=== PATIENT | female | born 1955 | race Asian ===

== ENCOUNTER 2024-03-01 23:42 | Inpatient (IN) | payer MEDICAID, MEDICARE ==
[~2024-03-01] VITALS: Ht 160 cm; Wt 78.0 kg
[2024-03-01 23:47] VITALS: BP_SYST 178; PULSE 109; RESP 18; TEMP 98.5; O2SAT 98
[2024-03-02] VITALS (9 sets, daily range): BP systolic 97–164; PULSE 56–82; RESP 16–18; TEMP 98–98.8; O2SAT 94–98
[2024-03-02] MEDS: ENOXAPARIN SODIUM 80 MG/0.8 ML SYRINGE SUBCUT ONE (00:28)
[2024-03-02] MEDS: dilTIAZem HCL IVP 5 MG/ML VIAL IVP ONE ×2 (00:28→00:45)
[2024-03-02 00:55] LABS: BASOPHILS % (AUTO) 0.4 % (0.0-2.0); EOSINOPHILS # (AUTO) 0.1 K/uL (0.0-0.4); EOSINOPHILS % (AUTO) 2.1 % (0.0-4.0); HEMATOCRIT 49.1 % (36-48); HEMOGLOBIN 16.7 g/dL (12.0-16.0); LYMPHOCYTES # (AUTO) 2.3 K/uL (1.0-5.5); LYMPHOCYTES % (AUTO) 33.3 % (20.5-51.5); MEAN CORPUSCULAR HEMOGLOBIN 30 pg (27-31); MEAN CORPUSCULAR HGB CONC 34 % (32-36); MEAN CORPUSCULAR VOLUME 88 fL (79.0-98.0); MONOCYTES # (AUTO) 0.8 K/uL (0.0-1.0); MONOCYTES % (AUTO) 11.3 % (1.7-9.3); NEUTROPHILS # (AUTO) 3.7 K/uL (1.8-7.7); NEUTROPHILS % (AUTO) 52.9 % (40.0-70.0); PLATELET COUNT (AUTO) 214 K/uL (130-430); RED BLOOD CELL COUNT(AUTO) 5.57 MIL/uL (4.2-6.2); RED CELL DISTRIBUTION WIDTH 14.1 % (9.0-15.0)
[2024-03-02 01:14] LABS: ANION GAP 12 (5-15); CALCIUM 9.8 mg/dL (8.4-11.0); CARBON DIOXIDE 27 mmol/L (23-29); CHLORIDE 102 mmol/L (98-107); CREATININE 0.97 mg/dL (0.55-1.30); GLUCOSE 130 mg/dL (74-106); POTASSIUM 3.2 mmol/L (3.5-5.1); SODIUM SERUM 141 mmol/L (136-145); THYROID STIMULATING HORMONE 1.33 uIu/mL (0.34-4.82); UREA NITROGEN, BLOOD 25 mg/dL (8-21)
[2024-03-02] MEDS ORDERED: MORPHINE 2 MG/ML INJ. SYRINGE IVP PRN (01:15)
[2024-03-02] MEDS ORDERED: ONDANSETRON HCL 4 MG/2 ML VIAL IVP PRN ×2 (01:15→07:15)
[2024-03-02] MEDS ORDERED: ACETAMINOPHEN 325 MG TABLET PO PRN ×3 (01:15→07:45)
[2024-03-02 01:16] LABS: GFR AFRICAN AMERICAN 73 mL/min (>90); GFR NON AFRICAN-AMERICAN 60 mL/min (>90)
[2024-03-02] MEDS: POTASSIUM CHLORIDE 20 MEQ/PKT PACKET PO ONE (01:49)
[2024-03-02] MEDS: ALPRAZolam 0.25 MG TABLET PO PRN (01:49)
[2024-03-02] MEDS: METOPROLOL TARTRATE 5 MG/5 ML VIAL IVP ONE ×2 (02:12→03:15)
[2024-03-02] MEDS ORDERED: METOPROLOL TARTRATE 5 MG/5 ML VIAL IVP PRN (02:15)
[2024-03-02] MEDS ORDERED: CALC-1276 (02:36)
[2024-03-02] MEDS ORDERED: ASPI-1393 PO (02:36)
[2024-03-02] MEDS ORDERED: MULT-1243 PO (02:36)
[2024-03-02] MEDS ORDERED: SIMV-43 PO (02:36)
[2024-03-02] MEDS ORDERED: ALEN70TA27 PO (02:36)
[2024-03-02] MEDS ORDERED: LOSA-413 PO (02:37)
[2024-03-02] MEDS ORDERED: CALC-939 PO (06:24)
[2024-03-02] MEDS ORDERED: HYDROcodone/ACETAMIN 5-325 MG TAB (NORCO/ VICODIN) PO PRN (07:15)
[2024-03-02 07:22] LABS: BILIRUBIN,URINE NEGATIVE (NEGATIVE); BLOOD, URINE TRACE (NEGATIVE); CLARITY/URINE CLEAR (CLEAR); COLOR,URINE STRAW (YELLOW); GLUCOSE,URINE NEGATIVE (NEGATIVE); KETONES,URINE NEGATIVE (NEGATIVE); LEUKOCYTE ESTERASE ,URINE NEGATIVE (NEGATIVE); NITRITE, URINE NEGATIVE (NEGATIVE); PROTEIN URINE 1+ (NEGATIVE); UROBILINOGEN,URINE 0.2 (0.2-1.0)
[2024-03-02 07:31] LABS: BASOPHILS % (AUTO) 0.5 % (0.0-2.0); EOSINOPHILS % (AUTO) 0.2 % (0.0-4.0); HEMATOCRIT 48.2 % (36-48); HEMOGLOBIN 16.3 g/dL (12.0-16.0); LYMPHOCYTES # (AUTO) 1.5 K/uL (1.0-5.5); MEAN CORPUSCULAR HEMOGLOBIN 30 pg (27-31); MEAN CORPUSCULAR HGB CONC 34 % (32-36); MEAN CORPUSCULAR VOLUME 89 fL (79.0-98.0); MONOCYTES # (AUTO) 0.6 K/uL (0.0-1.0); MONOCYTES % (AUTO) 7.7 % (1.7-9.3); NEUTROPHILS # (AUTO) 5.3 K/uL (1.8-7.7); NEUTROPHILS % (AUTO) 71.6 % (40.0-70.0); PLATELET COUNT (AUTO) 215 K/uL (130-430); RED BLOOD CELL COUNT(AUTO) 5.39 MIL/uL (4.2-6.2); RED CELL DISTRIBUTION WIDTH 13.7 % (9.0-15.0); WHITE BLOOD COUNT (AUTO) 7.4 K/uL (4.8-10.8)
[2024-03-02 07:35] LABS: BACTERIA,URINE None Seen /HPF (None Seen); WBC,URINE 0-3 /HPF (0-3)
[2024-03-02 07:36] LABS: MUCUS,URINE 1+ /LPF (None Seen)
[2024-03-02 07:49] LABS: INR 1.1 (0.8-1.2)
[2024-03-02 07:53] LABS: HEMOGLOBIN A1C 5.8 % (<5.7)
[2024-03-02 08:22] LABS: ALBUMIN 3.7 g/dL (3.4-4.8); CALCIUM 9.6 mg/dL (8.4-11.0); CREATININE 0.9 mg/dL (0.55-1.30); POTASSIUM 5.1 mmol/L (3.5-5.1); TOTAL BILIRUBIN 0.6 mg/dL (0.0-1.0); TOTAL PROTEIN, SERUM 8.9 g/dL (6.4-8.3)
[2024-03-02] MEDS: METOPROLOL TARTRATE 25 MG TABLET PO SCH (09:29)
[2024-03-02] MEDS: ENOXAPARIN SODIUM 60 MG/0.6 ML SYRINGE SUBCUT ONE (11:26)
[2024-03-02] MEDS: LOSARTAN POTASSIUM 50 MG TABLET (COZAAR) PO ONE (12:43)
[2024-03-02] MEDS: APIXABAN 2.5 MG TABLET PO SCH (20:32)
[2024-03-02] MEDS ORDERED: ENOXAPARIN SODIUM 60 MG/0.6 ML SYRINGE SUBCUT SCH (21:00)
[2024-03-02] MEDS: SIMVASTATIN 20 MG TABLET PO SCH (21:12)
[2024-03-02] MEDS: METOPROLOL TARTRATE 25 MG TABLET ONE (21:33)
[2024-03-02] MEDS: SIMVASTATIN 20 MG TABLET ONE (21:34)
[2024-03-03 00:30] VITALS: BP_SYST 142; PULSE 61; RESP 18; TEMP 97.1; O2SAT 94
[2024-03-03 06:50] LABS: CREATININE 1.07 mg/dL (0.55-1.30); POTASSIUM 3.4 mmol/L (3.5-5.1)
[2024-03-03 06:51] LABS: BASOPHILS % (AUTO) 0.4 % (0.0-2.0); EOSINOPHILS # (AUTO) 0.1 K/uL (0.0-0.4); HEMATOCRIT 45.5 % (36-48); HEMOGLOBIN 15.4 g/dL (12.0-16.0); LYMPHOCYTES # (AUTO) 1.7 K/uL (1.0-5.5); LYMPHOCYTES % (AUTO) 27.1 % (20.5-51.5); MEAN CORPUSCULAR HEMOGLOBIN 30 pg (27-31); MEAN CORPUSCULAR HGB CONC 34 % (32-36); MEAN CORPUSCULAR VOLUME 89 fL (79.0-98.0); MONOCYTES # (AUTO) 0.6 K/uL (0.0-1.0); MONOCYTES % (AUTO) 10.4 % (1.7-9.3); NEUTROPHILS # (AUTO) 3.7 K/uL (1.8-7.7); NEUTROPHILS % (AUTO) 60.1 % (40.0-70.0); PLATELET COUNT (AUTO) 203 K/uL (130-430); RED BLOOD CELL COUNT(AUTO) 5.11 MIL/uL (4.2-6.2); RED CELL DISTRIBUTION WIDTH 13.7 % (9.0-15.0); WHITE BLOOD COUNT (AUTO) 6.2 K/uL (4.8-10.8)
[2024-03-03 08:00] VITALS: O2SAT 96
[2024-03-03 08:01] VITALS: BP_SYST 151; PULSE 61; RESP 17; TEMP 97.9; O2SAT 98
[2024-03-03] MEDS: LOSARTAN POTASSIUM 50 MG TABLET (COZAAR) PO SCH (08:40)
[2024-03-03 11:16] VITALS: BP_SYST 103; PULSE 63; RESP 15; TEMP 96.5; O2SAT 98
[2024-03-03 11:21] VITALS: BP_SYST 118; PULSE 69; RESP 18; TEMP 97.6; O2SAT 98
[2024-03-03] MEDS ORDERED: METO25TA6 PO (13:31)
[2024-03-03] MEDS ORDERED: SIMV-43 PO (13:31)
[2024-03-03] MEDS ORDERED: APIX5TAB PO (13:34)
[2024-03-03] MEDS: POTASSIUM CHLORIDE 20 MEQ/PKT PACKET PO ONE (14:44)
[2024-03-03 15:00] VITALS: BP_SYST 118; PULSE 69; RESP 17; TEMP 98.7; O2SAT 99
== END 2024-03-03 15:10 | disposition home or self-care (01) | DRG 201 ==
LOC: SED 23:42 → SIC 03-02 01:10 → STU 03-02 15:10 → UNDODISIN 03-02 15:34 → SIC 03-02 15:42 → STU 03-02 20:33
PROVIDERS: ADMIT Internal Medicine; ATTEND Internal Medicine
DX: I48.91 Unspecified atrial fibrillation (principal); E78.5 Hyperlipidemia, unspecified; I10 Essential (primary) hypertension; I16.1 Hypertensive emergency; Z79.82 Long term (current) use of aspirin; Z79.899 Other long term (current) drug therapy
CPT/HCPCS: 36415; 71045; 80048; 80053; 80061; 81000; 81001; 81015; 83037; 83735; 83880; 84443; 84484; 85025; 85379; 85610; 87081; 93005; 93306; 99291; G0378; J1650; J3490